=== PATIENT | female | born 1980 | race African-American/Black ===

== ENCOUNTER 2021-03-13 17:33 | Emergency (ER) | payer OTHER, SELFPAY | END 2021-03-13 18:12 | disposition home or self-care (01) | LOC: NAV ERS 17:33 | DX: M54.6 Pain in thoracic spine (principal); F17.210 Nicotine dependence, cigarettes, uncomplicated | CPT/HCPCS: 99283 ==

== ENCOUNTER 2024-01-11 17:07 | Emergency (ER) | payer SELFPAY ==
[2024-01-11] MEDS ORDERED: Ketorolac Tromethamine 60 MG/2 ML VIAL ONE (18:39)
[2024-01-11 19:22] LABS: Influenza A by NAA Not Detected (NotDetected); Influenza B by NAA Not Detected (NotDetected); SARS-CoV-2 NAA Rapid Test Not Detected (NotDetected)
[2024-01-11] MEDS ORDERED: Amlodipine 5 MG TAB ONE (19:39)
== END 2024-01-11 19:50 | disposition home or self-care (01) ==
LOC: NAV ERS 17:07
DX: B34.9 Viral infection, unspecified (principal); I10 Essential (primary) hypertension; F17.290 Nicotine dependence, other tobacco product, uncomplicated
CPT/HCPCS: 96372; 99284; J1885